=== PATIENT | male | born 1960 | race Caucasian/White ===

== ENCOUNTER 2019-07-23 08:43 | Inpatient (IN) | payer MEDICAID ==
[~2019-07-23] VITALS: Ht 180.3 cm; Wt 108.0 kg
[2019-07-23] VITALS (11 sets, daily range): BP systolic 149–248; BP diastolic 66–137
[~2019-07-23 08:43] MED LIST: NKM; NORCO 5-325 TA1 EAC1 ORAL; NORVASC10 MG ORAL
[2019-07-23] MEDS ORDERED: NKM (08:52)
[2019-07-23] MEDS ORDERED: cloNIDine 0.2mg Tab ORAL ONE (09:00)
--- NOTE | 2019-07-23 09:10 | Emergency Room Report ---
History of Present Illness General Chief Complaint: Hypertension Source: Patient Present Illness HPI Disclaimer: Please note that this report is being documented using m[employer] technology. This can lead to erroneous entry secondary to incorrect interpretation by the dictating instrument. HPI: 58-year-old male with a history of diabetes and hypertension noncompliant with his medications presents for evaluation of headaches and blurred vision. Symptoms have been intermittent over the past 3 days. He currently reports a 6/ 10 headache and intermittent blurred vision. Denies double vision, loss of vision. Sometimes will see bright flashes in his visual field. Patient is supposed to be taking insulin for his diabetes and an unknown antihypertensive for his blood pressures however he has been noncompliant for long time, possibly years. He denies any chest pain, difficulty breathing, abdominal pain , nausea, vomiting, recent fevers or URI symptoms. Denies numbness, tingling or weakness in the extremities. PMH: Hypertension, diabetes PSH: Hernia surgery Allergies: Denies Social Hx: Occasional alcohol use, denies tobacco use Allergies: Coded Allergies: No Known Allergies (Unverified , 01/17/16) Nursing Documentation-PMH Past Medical History: No History, Except For Hx Cardiac Problems: Yes - Stroke<5 weeks ago Hx Hypertension: Yes Hx Diabetes: Yes Hx Cancer: No Hx Gastrointestinal Problems: No Hx Neurological Problems: No Review of Systems All Other Systems: negative except mentioned in HPI Physical Exam Vital Signs Date Time Temp Pulse Resp B/P (MAP) Pulse Ox O2 Delivery O2 Flow Rate FiO2 07/23/19 08:48 107 18 222/136 (164) 96 Room Air General: Awake and alert, no acute distress HEENT: NC/AT. EOMI. PERRLA. Cardiovascular: Slightly tachycardic. S1 and S2 normal. No murmur appreciated Resp: Normal work of breathing. No cough, wheezing or crackles appreciated Abdomen: Abdomen is soft, nondistended. Nontender Skin: Intact. No abrasions, laceration or rash over the exposed skin MSK: Normal tone and bulk. Moving all extremities. No obvious deformity. Neuro: Awake and alert. Mentating appropriately. Medical Decision Making Diagnostic Impression: Primary Impression: Hypertensive urgency Additional Impression: Hyperglycemia ER Course This is a 58-year-old male history of diabetes and hypertension noncompliant with medications presenting for intermittent headaches and visual changes for the past 3 days. Currently has a 6/10 headache and no visual changes. He arrives very hypertensive with systolics in the 240s. He denies any chest pain , palpitations or other symptoms at this time. He cannot recall what medication he was prescribed many years ago for his hypertension but he is noncompliant. He no longer takes insulin. We will start a broad metabolic cardiac work-up on the patient. We will treat his elevated blood pressures and monitor for improvement. Laboratory Tests Test 07/23/19 09:10 White Blood Count 11.4 K/UL (4.8-10.8) H Red Blood Count 5.38 M/UL (4.70-6.10) Hemoglobin 16.1 G/DL (14.2-18.0) Hematocrit 45.2 % (42.0-52.0) Mean Corpuscular Volume 84 FL (80-99) Mean Corpuscular Hemoglobin 30.0 PG (27.0-31.0) Mean Corpuscular Hemoglobin Concent 35.6 G/DL (32.0-36.0) Red Cell Distribution Width 12.0 % (11.6-14.8) Platelet Count 360 K/UL (150-450) Mean Platelet Volume 8.0 FL (6.5-10.1) Neutrophils (%) (Auto) 59.2 % (45.0-75.0) Lymphocytes (%) (Auto) 33.1 % (20.0-45.0) Monocytes (%) (Auto) 5.7 % (1.0-10.0) Eosinophils (%) (Auto) 0.8 % (0.0-3.0) Basophils (%) (Auto) 1.2 % (0.0-2.0) Sodium Level 136 MMOL/L (136-145) Potassium Level 3.6 MMOL/L (3.5-5.1) Chloride Level 100 MMOL/L (98-107) Carbon Dioxide Level 28 MMOL/L (21-32) Anion Gap 8 mmol/L (5-15) Blood Urea Nitrogen 15 mg/dL (7-18) Creatinine 1.0 MG/DL (0.55-1.30) Estimate Glomerular Filtration Rate > 60 mL/min (>60) Glucose Level 345 MG/DL (74-106) H Calcium Level 9.2 MG/DL (8.5-10.1) Total Bilirubin 0.5 MG/DL (0.2-1.0) Aspartate Amino Transferase (AST) 12 U/L (15-37) L Alanine Aminotransferase (ALT) 17 U/L (12-78) Alkaline Phosphatase 120 U/L (46-116) H Troponin I 0.000 ng/mL (0.000-0.056) Total Protein 7.8 G/DL (6.4-8.2) Albumin 3.6 G/DL (3.4-5.0) Globulin 4.2 g/dL Albumin/Globulin Ratio 0.9 (1.0-2.7) L Acetone Level Negative (NEGATIVE) EKG Diagnostic Results EKG Time: 09:00 Rate: normal Rhythm: NSR ST Segments: no acute changes Other Impression Tachycardia. Sinus rhythm, left axis deviation, normal intervals. No ST segment changes. Q waves in the inferior leads. Possible left fascicular block Rhythm Strip Diag. Results Rhythm Strip Time: 09:00 EP Interpretation: yes Rate: 100s Rhythm: NSR, no PVC's, no ectopy Reevaluation Time: 12:39 Last Vital Signs Date Time Temp Pulse Resp B/P (MAP) Pulse Ox O2 Delivery O2 Flow Rate FiO2 07/23/19 08:48 107 18 222/136 (164) 96 Room Air Status: improved Reevaluation Impression Labs have returned within normal limits. The patient's headache is improving as his blood pressures are coming down. He received clonidine and hydralazine with good effect. We will not drop his blood pressures further. Troponin negative. EKG unremarkable. Blood sugar improving after subcutaneous insulin. The patient has no outpatient follow-up, does not know how to dose insulin, does not know what medications he is to take for blood pressures. Given his lack of follow-up will admit him to the hospital for further treatment of his elevated blood pressures and high glucose readings as well as teaching him how to properly take his medications. Stable for admission to telemetry. Disposition: ADMITTED INPATIENT Condition: Serious Carlos Villalpando MD Jul 23, 2019 09:10
--- NOTE | 2019-07-23 09:30 | NUR ---
ED Nurse Note: Patient tolerated clonidine and hydralazine well. Current BP is 210/109. Patient headache now a 2/10. Patient states he feels much better than when he arrived.
--- NOTE | 2019-07-23 09:44 | NUR ---
ED Nurse Note: Patient arrived to ED from home complaining of 5/10 headache. Patient has BP of 248/128. He states that he has had uncontrolled hypertension for a long time and does not currently take any medications. Patient also has diabetes, blood glucose check is 365. Patient on the monitoring and evaluation advisor, bed in lowest position. No acute distress. Blood, urine, and swabs sent to lab.
[2019-07-23] MEDS ORDERED: Insulin Human Regular 100units/ml 3ml SUBQ ONE (10:00)
[2019-07-23 10:22] LABS: ANION GAP 8 mmol/L (5-15); BLOOD UREA NITROGEN 15 mg/dL (7-18); CALCIUM 9.2 MG/DL (8.5-10.1); CARBON DIOXIDE 28 MMOL/L (21-32); CHLORIDE 100 MMOL/L (98-107); POTASSIUM 3.6 MMOL/L (3.5-5.1); SODIUM 136 MMOL/L (136-145)
[2019-07-23 10:27] LABS: ALANINE AMINOTRANSFERASE 17 U/L (12-78); ALBUMIN 3.6 G/DL (3.4-5.0); ALBUMIN/GLOBULIN RATIO 0.9 (1.0-2.7); ALKALINE PHOSPHATASE 120 U/L (46-116); ASPARTATE AMINO TRANSFERASE 12 U/L (15-37); BILIRUBIN,TOTAL 0.5 MG/DL (0.2-1.0)
[2019-07-23 10:33] LABS: BASOPHILS % (AUTO) 1.2 % (0.0-2.0); EOSINOPHILS % (AUTO) 0.8 % (0.0-3.0); HEMATOCRIT 45.2 % (42.0-52.0); HEMOGLOBIN 16.1 G/DL (14.2-18.0); LYMPHOCYTES % (AUTO) 33.1 % (20.0-45.0); MEAN CORPUSCULAR VOLUME 84 FL (80-99); MONOCYTES % (AUTO) 5.7 % (1.0-10.0); NEUTROPHILS % (AUTO) 59.2 % (45.0-75.0); PLATELET COUNT 360 K/UL (150-450); RED BLOOD COUNT 5.38 M/UL (4.70-6.10); WHITE BLOOD COUNT 11.4 K/UL (4.8-10.8)
--- NOTE | 2019-07-23 11:19 | NUR ---
ER Nurse Note: Pt calm, awake, RA, no signs of distress. Pt VSS, BP under 160/90, ERMD aware. Pt states 2/10 headache with slight blurry vision. Pt able to move all extremity, no signs of stroke. Blood sugar under control; will recheck after insulin given by previous RN. All orders completed per previous RN. All safety measures met; will continue to monitor.
--- NOTE | 2019-07-23 11:48 | NUR ---
ER Nurse Note: Blood sugar checked; 266, ERMD notifed. No further orders. Pt aware of admission. All safety measures met; will continue to montior.
--- NOTE | 2019-07-23 12:49 | NUR ---
ER Nurse Note: Pt stable, no signs of distress, RA, denies pain. BP 160/101; MD and charge nurse aware, no orders. All belongings accounted for. Safety measures met; will continue to montior.
--- NOTE | 2019-07-23 14:09 | NUR ---
ER Nurse Note: Report given to HUBER Lomeli for continutiy of care. Pt stable, no signs of distress. All belongings taken.
[2019-07-23] MEDS ORDERED: cloNIDine 0.2mg Tab ORAL PRN (16:00)
--- NOTE | 2019-07-23 16:18 | NUR ---
NURSE NOTES: Received pt from EDI PROGRAMMER ANALYST SHARONA at 1430. All admission assessments and instructions done. pt is A&O x4. pt is in RA, no SOB or acute respiratory distress noted. pt is in continues cardiac monitoring as protocol, Dr DE OLIVEIRA was called for admission orders and he called back now and all orders noted and carried out. Dr DE OLIVEIRA is aware about WBC 11.4 and BS 345 and BP 175/110 and other lab results and V/S. Pt has intact iv access RAC 20g SL. all needs attended, bed is locked and is in the lowest position, call light within easy reach. will continue to monitor.
[2019-07-23] MEDS: NovoLOG Insulin Flexpen SUBQ SCH ×2 (17:00→21:28)
--- NOTE | 2019-07-23 18:16 | NUR ---
NURSE NOTES: Dr LOUISE iws aware about consult, order noted and carried out, and Dr AUSTIN is aware about consult.
--- NOTE | 2019-07-23 19:17 | NUR ---
HAND-OFF: Report given to TOI NAVAS. Pt is awake and stable.
--- NOTE | 2019-07-23 19:20 | Cardiology Progress Note ---
Assessment/Plan Assessment/Plan [id number] Objective Last 24 Hour Vital Signs Date Time Temp Pulse Resp B/P (MAP) Pulse Ox O2 Delivery O2 Flow Rate FiO2 07/23/19 18:10 155/84 (107) 07/23/19 16:57 162/99 07/23/19 16:06 70 07/23/19 16:00 97.9 70 20 162/99 (120) 99 07/23/19 14:45 Room Air 07/23/19 14:30 97.3 73 18 175/110 (131) 97 07/23/19 14:15 98.3 80 16 170/80 99 Room Air 07/23/19 14:15 98.4 76 16 170/80 98 Room Air 07/23/19 12:49 98.3 78 16 160/100 99 Room Air 07/23/19 11:18 98.3 81 16 156/66 99 Room Air 07/23/19 09:30 95 210/109 07/23/19 09:26 229/137 07/23/19 09:26 229/137 07/23/19 09:26 96 222/136 07/23/19 09:00 99 229/137 07/23/19 08:52 110 18 Room Air 07/23/19 08:52 98.1 110 18 248/122 98 Room Air 07/23/19 08:48 107 18 222/136 (164) 96 Room Air Laboratory Tests Test 07/23/19 09:10 White Blood Count 11.4 K/UL (4.8-10.8) H Red Blood Count 5.38 M/UL (4.70-6.10) Hemoglobin 16.1 G/DL (14.2-18.0) Hematocrit 45.2 % (42.0-52.0) Mean Corpuscular Volume 84 FL (80-99) Mean Corpuscular Hemoglobin 30.0 PG (27.0-31.0) Mean Corpuscular Hemoglobin Concent 35.6 G/DL (32.0-36.0) Red Cell Distribution Width 12.0 % (11.6-14.8) Platelet Count 360 K/UL (150-450) Mean Platelet Volume 8.0 FL (6.5-10.1) Neutrophils (%) (Auto) 59.2 % (45.0-75.0) Lymphocytes (%) (Auto) 33.1 % (20.0-45.0) Monocytes (%) (Auto) 5.7 % (1.0-10.0) Eosinophils (%) (Auto) 0.8 % (0.0-3.0) Basophils (%) (Auto) 1.2 % (0.0-2.0) Sodium Level 136 MMOL/L (136-145) Potassium Level 3.6 MMOL/L (3.5-5.1) Chloride Level 100 MMOL/L (98-107) Carbon Dioxide Level 28 MMOL/L (21-32) Anion Gap 8 mmol/L (5-15) Blood Urea Nitrogen 15 mg/dL (7-18) Creatinine 1.0 MG/DL (0.55-1.30) Estimat Glomerular Filtration Rate > 60 mL/min (>60) Glucose Level 345 MG/DL (74-106) H Calcium Level 9.2 MG/DL (8.5-10.1) Total Bilirubin 0.5 MG/DL (0.2-1.0) Aspartate Amino Transf (AST/SGOT) 12 U/L (15-37) L Alanine Aminotransferase (ALT/SGPT) 17 U/L (12-78) Alkaline Phosphatase 120 U/L (46-116) H Troponin I 0.000 ng/mL (0.000-0.056) Total Protein 7.8 G/DL (6.4-8.2) Albumin 3.6 G/DL (3.4-5.0) Globulin 4.2 g/dL Albumin/Globulin Ratio 0.9 (1.0-2.7) L Acetone Level Negative (NEGATIVE) Microbiology Date/Time Source Procedure Growth Status 07/23/19 09:20 Rectum Received Gregory Deleon MD Jul 23, 2019 19:20
--- NOTE | 2019-07-23 20:10 | NUR ---
NURSE NOTES: Written report received from HUBER Young. Patient in bed resting, no complaints of pain or distress at this time. Will continue to monitor.
[2019-07-23] MEDS: Levemir Flexpen SUBQ SCH (21:24)
[2019-07-24] VITALS: BP 141/83
[2019-07-24 04:00] VITALS: BP 140/86
[2019-07-24] MEDS: NovoLOG Insulin Flexpen SUBQ SCH ×4 (06:23→21:38)
--- NOTE | 2019-07-24 07:35 | NUR ---
NURSE NOTES: Received report from Jesica/RN, Patient is awake and alert, eating breakfast on bed. On room air, with no acute distress/SOB noted. A/O x4. Able to make needs known, Denies pain at this time. IV on Right AC patent, no bleeding or infiltration noted. Bed in low position and locked, Call light within reach. Encouraged to use call light when needed. Bed alarm engaged, side-rails up x2. Will continue plan of care.
[2019-07-24 07:42] LABS: BASOPHILS % (AUTO) 1.1 % (0.0-2.0); EOSINOPHILS % (AUTO) 1.8 % (0.0-3.0); HEMATOCRIT 42.5 % (42.0-52.0); HEMOGLOBIN 14.9 G/DL (14.2-18.0); LYMPHOCYTES % (AUTO) 33.5 % (20.0-45.0); MEAN CORPUSCULAR VOLUME 86 FL (80-99); MONOCYTES % (AUTO) 7.1 % (1.0-10.0); NEUTROPHILS % (AUTO) 56.5 % (45.0-75.0); PLATELET COUNT 326 K/UL (150-450); RED BLOOD COUNT 4.94 M/UL (4.70-6.10); RED CELL DISTRIBUTION WIDTH 12.5 % (11.6-14.8); WHITE BLOOD COUNT 10.5 K/UL (4.8-10.8)
--- NOTE | 2019-07-24 07:48 | NUR ---
HAND-OFF: Report given to Ashley RN. Patient in bed resting. Stable at Hand off.
[2019-07-24 08:00] VITALS: BP 172/105
[2019-07-24 08:13] LABS: ALANINE AMINOTRANSFERASE 18 U/L (12-78); ALBUMIN 3.1 G/DL (3.4-5.0); ALBUMIN/GLOBULIN RATIO 0.8 (1.0-2.7); ALKALINE PHOSPHATASE 97 U/L (46-116); ANION GAP 6 mmol/L (5-15); ASPARTATE AMINO TRANSFERASE 13 U/L (15-37); BILIRUBIN,TOTAL 0.6 MG/DL (0.2-1.0); BLOOD UREA NITROGEN 13 mg/dL (7-18); CARBON DIOXIDE 29 MMOL/L (21-32); CHLORIDE 104 MMOL/L (98-107); CHOLESTEROL 221 MG/DL (< 200); CREATININE 0.9 MG/DL (0.55-1.30); HDL CHOLESTEROL 27 MG/DL (40-60); POTASSIUM 3.8 MMOL/L (3.5-5.1); SODIUM 138 MMOL/L (136-145)
[2019-07-24] MEDS: Enoxaparin 40mg Inj SUBQ SCH (08:54)
[2019-07-24 09:59] LABS: TRIGLYCERIDES 187 MG/DL (30-150)
--- NOTE | 2019-07-24 10:11 | History & Physical ---
History and Physical History & Physicial Patient seen and examined. Full Dictation completed. Lilia Flores MD Jul 24, 2019 10:11
--- NOTE | 2019-07-24 10:12 | General Progress Note ---
Assessment/Plan Assessment/Plan: Full Dictation in progerss 1- DM 2- Hypertensive Emergency 3- Acute hypertensive encephalopathy Plan: Statin added Riki-I added Subjective Allergies: Coded Allergies: No Known Allergies (Unverified , 01/17/16) Objective Last 24 Hour Vital Signs Date Time Temp Pulse Resp B/P (MAP) Pulse Ox O2 Delivery O2 Flow Rate FiO2 07/24/19 08:48 72 172/105 07/24/19 08:48 72 172/105 07/24/19 08:00 96.6 72 18 172/105 (127) 93 07/24/19 04:00 98.4 68 18 140/86 (104) 98 07/24/19 04:00 55 07/24/19 00:00 98.0 64 18 141/83 (102) 99 07/24/19 00:00 62 07/23/19 21:22 67 149/94 07/23/19 21:00 Room Air 07/23/19 20:00 68 07/23/19 20:00 98.1 64 16 149/94 (112) 97 07/23/19 18:10 155/84 (107) 07/23/19 16:57 162/99 07/23/19 16:06 70 07/23/19 16:00 97.9 70 20 162/99 (120) 99 07/23/19 14:45 Room Air 07/23/19 14:30 97.3 73 18 175/110 (131) 97 07/23/19 14:15 98.3 80 16 170/80 99 Room Air 07/23/19 14:15 98.4 76 16 170/80 98 Room Air 07/23/19 12:49 98.3 78 16 160/100 99 Room Air 07/23/19 11:18 98.3 81 16 156/66 99 Room Air Intake and Output 07/23/19 07/24/19 19:00 07:00 Intake Total 1240 ml 140 ml Balance 1240 ml 140 ml Intake Oral 240 ml 140 ml IV Total 1000 ml # Voids 3 # Bowel Movements 1 1 Laboratory Tests 07/24/19 06:05: White Blood Count 10.5, Red Blood Count 4.94, Hemoglobin 14.9, Hematocrit 42.5, Mean Corpuscular Volume 86, Mean Corpuscular Hemoglobin 30.2, Mean Corpuscular Hemoglobin Concent 35.1, Red Cell Distribution Width 12.5, Platelet Count 326, Mean Platelet Volume 8.3, Neutrophils (%) (Auto) 56.5, Lymphocytes (%) (Auto) 33.5, Monocytes (%) (Auto) 7.1, Eosinophils (%) (Auto) 1.8, Basophils (%) (Auto ) 1.1, Sodium Level 138, Potassium Level 3.8, Chloride Level 104, Carbon Dioxide Level 29, Anion Gap 6, Blood Urea Nitrogen 13, Creatinine 0.9, Estimat Glomerular Filtration Rate > 60, Glucose Level 189#H, Hemoglobin A1c 10.9H, Calcium Level 9.0, Total Bilirubin 0.6, Aspartate Amino Transf (AST/SGOT) 13L, Alanine Aminotransferase (ALT/SGPT) 18, Alkaline Phosphatase 97, Troponin I 0.007, Pro-B-Type Natriuretic Peptide 207H, Total Protein 6.9, Albumin 3.1L, Globulin 3.8, Albumin/Globulin Ratio 0.8L, Triglycerides Level 187H, Cholesterol Level 221H, LDL Cholesterol 148H, HDL Cholesterol 27L, Cholesterol/ HDL Ratio 8.2H, Thyroid Stimulating Hormone (TSH) 1.184 Height (Feet): 5 Height (Inches): 11.00 Weight (Pounds): 245 Lilia Flores MD Jul 24, 2019 10:12
[2019-07-24] MEDS ORDERED: Lisinopril 10mg tab ORAL SCH (10:15)
[2019-07-24] MEDS: metFORMIN 500mg tab ORAL SCH ×2 (11:57→17:22)
[2019-07-24 12:00] VITALS: BP 159/100
--- NOTE | 2019-07-24 12:36 | NUR ---
CARDIOLOGY: [facility] ROOM : [facility] [id number] Temporary 2-D ECHO REPORT Normal left ventricular chamber size, systolic function and wall motion. Left ventricular ejection fraction estimated to be 60%. No evidence of left ventricular hypertrophy . No evidence of pericardial effusion. All other cardiac chamber sizes are within normal limits. Focal aortic valve sclerosis with adequate cusp excursion. Thickened mitral valve leaflets with normal excursion. Mitral annulus and aortic root calcification. Pulmonic valve not well visualized. Normal tricuspid valve structure. IVC at normal size with physiologic collapse. A color flow and spectral Doppler study was performed and revealed: No aortic insufficiency. Mild mitral regurgitation. Mitral diastolic velocities suggest reduced left ventricular relaxation c/w mild LV diastolic dysfunction (Grade I ). Trace tricuspid regurgitation. Tricuspid systolic velocities suggests peak right ventricular systolic pressure of 9mmHg.n.
--- NOTE | 2019-07-24 14:45 | History and Physical Report ---
DATE OF ADMISSION: 07/23/2019 SOURCE OF INFORMATION: The patient and EMR. HISTORY OF PRESENT ILLNESS: The patient is a pleasant 58-year-old male with history of diabetes and hypertension, who presented with diffuse weakness all over, mild chest pain, and shortness of breath. The patient denies having any diarrhea or constipation. No fever, no chills. Initial evaluation in the emergency room shows the blood pressure of 220 with pulse rate of 100, otherwise afebrile. REVIEW OF SYSTEMS: All 14 elements of review of systems reviewed, pertinent positive and negative as above. ALLERGIES: NKDA. CURRENT HOSPITAL MEDICATIONS: Including amlodipine, clonidine, and sliding scale medication. PAST MEDICAL HISTORY: Hypertension, diabetes. PAST SURGICAL HISTORY: Small bowel obstruction history. SOCIAL HISTORY: The patient lives with . Denies history of illicit drug abuse, smoking, or alcohol abuse. FAMILY HISTORY: Noncontributory. PHYSICAL EXAMINATION: VITAL SIGNS: Blood pressure 220, diastolic blood pressure 130, pulse rate 100, respiratory rate 18, temperature 98.2, pulse oximetry 98% on room air. HEAD AND NECK: Atraumatic and normocephalic. CHEST: Clear to auscultation. HEART: S1, S2. Regular rate and rhythm. ABDOMEN: Soft. No organomegaly. MUSCULOSKELETAL: No gross focal motor deficit. A scar of prior surgery noted. NEUROLOGY: Awake, alert, and oriented x3. LABORATORY DATA: Dated July 23, WBC 11.4, hemoglobin 16.1, platelets 360. Sodium 136, potassium 3.6, glucose 340. AST 12. TSH 1.1. LDL of 148. ASSESSMENT AND PLAN: 1. Hypertensive emergency. 2. Acute hypertensive encephalopathy. 3. Diabetes type 2, uncontrolled. 4. Hyperlipidemia. 5. GI and DVT prophylaxis. PLAN OF CARE: I agree with the telemetry admission. We will start the patient on amlodipine and I will titrate the medications accordingly. COMMENT: The time of this dictation does not reflect the actual time of encounter. Lilia Flores M.D. DR: ASHLEY JOB#: [id number] CC:
[2019-07-24 16:00] VITALS: BP 150/67
--- NOTE | 2019-07-24 18:42 | Cardiology Progress Note ---
Assessment/Plan Problem List: (1) Hypertensive urgency Status: stable, progressing Status Narrative Mr To's BP is improving, but still significantly elevated. He has hyperlipidemia, w LDL 148, and is diabetic ? diabetic nephropathy Assessment/Plan Uptitrate lisinopril. Continue metoprolol Add statin for HLD Subjective ROS Limited/Unobtainable: No Subjective Cardiology for Dr. Deleon Pt comfortable. H/a and vision changes have resolved Objective Last 24 Hour Vital Signs Date Time Temp Pulse Resp B/P (MAP) Pulse Ox O2 Delivery O2 Flow Rate FiO2 07/24/19 16:00 73 07/24/19 16:00 98.1 70 20 150/67 (94) 93 07/24/19 12:00 96.6 71 18 159/100 (119) 96 07/24/19 12:00 64 07/24/19 10:33 172/105 07/24/19 09:00 Room Air 07/24/19 08:48 72 172/105 07/24/19 08:48 72 172/105 07/24/19 08:00 96.6 72 18 172/105 (127) 93 07/24/19 08:00 73 07/24/19 04:00 98.4 68 18 140/86 (104) 98 07/24/19 04:00 55 07/24/19 00:00 98.0 64 18 141/83 (102) 99 07/24/19 00:00 62 07/23/19 21:22 67 149/94 07/23/19 21:00 Room Air 07/23/19 20:00 68 07/23/19 20:00 98.1 64 16 149/94 (112) 97 General Appearance: WD/WN, no apparent distress, alert EENT: PERRL/EOMI Neck: non-tender, no JVD Rhythm: NSR Cardiovascular: normal rate, regular rhythm, no gallop/murmur Respiratory/Chest: lungs clear Abdomen: non tender, soft, no mass Extremities: no swelling Pulses: normal: DP (L), DP (R) Neurologic: no motor/sensory deficits, alert, oriented x 3 Intake and Output 07/23/19 07/24/19 19:00 07:00 Intake Total 1240 ml 140 ml Balance 1240 ml 140 ml Intake Oral 240 ml 140 ml IV Total 1000 ml # Voids 3 # Bowel Movements 1 1 Laboratory Tests Test 07/24/19 06:05 White Blood Count 10.5 K/UL (4.8-10.8) Red Blood Count 4.94 M/UL (4.70-6.10) Hemoglobin 14.9 G/DL (14.2-18.0) Hematocrit 42.5 % (42.0-52.0) Mean Corpuscular Volume 86 FL (80-99) Mean Corpuscular Hemoglobin 30.2 PG (27.0-31.0) Mean Corpuscular Hemoglobin Concent 35.1 G/DL (32.0-36.0) Red Cell Distribution Width 12.5 % (11.6-14.8) Platelet Count 326 K/UL (150-450) Mean Platelet Volume 8.3 FL (6.5-10.1) Neutrophils (%) (Auto) 56.5 % (45.0-75.0) Lymphocytes (%) (Auto) 33.5 % (20.0-45.0) Monocytes (%) (Auto) 7.1 % (1.0-10.0) Eosinophils (%) (Auto) 1.8 % (0.0-3.0) Basophils (%) (Auto) 1.1 % (0.0-2.0) Sodium Level 138 MMOL/L (136-145) Potassium Level 3.8 MMOL/L (3.5-5.1) Chloride Level 104 MMOL/L (98-107) Carbon Dioxide Level 29 MMOL/L (21-32) Anion Gap 6 mmol/L (5-15) Blood Urea Nitrogen 13 mg/dL (7-18) Creatinine 0.9 MG/DL (0.55-1.30) Estimat Glomerular Filtration Rate > 60 mL/min (>60) Glucose Level 189 MG/DL (74-106) #H Hemoglobin A1c 10.9 % (4.3-6.0) H Calcium Level 9.0 MG/DL (8.5-10.1) Total Bilirubin 0.6 MG/DL (0.2-1.0) Aspartate Amino Transf (AST/SGOT) 13 U/L (15-37) L Alanine Aminotransferase (ALT/SGPT) 18 U/L (12-78) Alkaline Phosphatase 97 U/L (46-116) Troponin I 0.007 ng/mL (0.000-0.056) Pro-B-Type Natriuretic Peptide 207 pg/mL (0-125) H Total Protein 6.9 G/DL (6.4-8.2) Albumin 3.1 G/DL (3.4-5.0) L Globulin 3.8 g/dL Albumin/Globulin Ratio 0.8 (1.0-2.7) L Triglycerides Level 187 MG/DL (30-150) H Cholesterol Level 221 MG/DL (< 200) H LDL Cholesterol 148 mg/dL (<100) H HDL Cholesterol 27 MG/DL (40-60) L Cholesterol/HDL Ratio 8.2 (3.3-4.4) H Thyroid Stimulating Hormone (TSH) 1.184 uiU/mL (0.358-3.740) Microbiology Date/Time Source Procedure Growth Status 07/23/19 09:20 Rectum Received Sarah Snell MD Jul 24, 2019 18:42
--- NOTE | 2019-07-24 19:30 | NUR ---
HAND-OFF: Report given to Maria Fernanda/RN, Patient is in stable condition. Endorsed plan of care.
[2019-07-24 20:00] VITALS: BP 171/103
--- NOTE | 2019-07-24 20:00 | NUR ---
NURSE NOTES: RECEIVED PATIENT LYING IN BED, AWAKE, ALERT/ORIENTED X4, IRISH SPEAKING, ABLE TO MAKE NEEDS KNOWN IN [place], DENIES PAIN. NO SIGNS AND SYMPTOMS OF ACUTE CARDIO RESPIRATORY DISTRESS/SHORTNESS OF BREATH, DENIES CHEST PAIN, NO PERIPHERAL EDEMA NOTED, CONTINUE ON [facility] ADVOCATE. ABDOMEN SOFT/NON DISTENDED, BOWEL SOUNDS AUDIBLE IN ALL QUADRANTS, NO N/V. SIDE RAILS UP X2 FOR MOBILITY, BED IN LOWEST POSITION FOR SAFETY, ENCOURAGED PATIENT TO UTILIZE CALL LIGHT FOR ASSISTANCE, VERBALIZED UNDERSTANDING. NAD.
[2019-07-24] MEDS: Atorvastatin 20mg tab ORAL SCH (21:31)
[2019-07-24] MEDS: Levemir Flexpen SUBQ SCH (21:40)
--- NOTE | 2019-07-24 22:22 | NUR ---
NURSE NOTES: BLOOD PRESSURE REASSESSED 143/98, REMAIN ASYMPTOMATIC, WILL CONTINUE TO MONITOR.
[2019-07-25] VITALS (8 sets, daily range): BP systolic 127–187; BP diastolic 81–110
[2019-07-25] MEDS: cloNIDine 0.2mg Tab ORAL PRN ×2 (00:29→10:06)
--- NOTE | 2019-07-25 01:00 | NUR ---
NURSE NOTES: REASSESSED BLOOD PRESSURE AFTER CLONIDINE WITH RESULT 150/95, ASYMPTOMATIC, DENIES HEADACHE/BLURRED VISION/DIZZINESS, WILL CONTINUE TO MONITOR.
[2019-07-25] MEDS: metFORMIN 500mg tab ORAL SCH ×3 (06:24→16:38)
[2019-07-25] MEDS: NovoLOG Insulin Flexpen SUBQ SCH ×4 (06:30→20:54)
--- NOTE | 2019-07-25 06:36 | NUR ---
NURSE NOTES: RESTED WELL, NO SIGNIFICANT CHANGE OF CONDITION NOTED THROUGHOUT THE NIGHT. SAFETY MAINTAINED. NAD.
--- NOTE | 2019-07-25 07:09 | NUR ---
HAND-OFF: Report given to HUBER SONI. Addendum: 07/25/19 at 0720 by KYM BRITTON LVN CHARTED IN ERROR, REPORT GIVEN TO HUBER TOLENTINO
--- NOTE | 2019-07-25 07:20 | NUR ---
NURSE NOTES: Received report from Maria Fernanda/RN, Patient is awake, Lying semi-de santiago's, resting comfortably. On room air, with no acute distress/SOB noted. A/O x4. Able to make needs known, Denies pain at this time. IV on Right AC patent, no bleeding or infiltration noted. Bed in low position and locked, Call light within reach. Encouraged to use call light when needed. Bed alarm engaged, side-rails up x2. Will continue plan of care.
[2019-07-25] MEDS: Enoxaparin 40mg Inj SUBQ SCH (08:28)
--- NOTE | 2019-07-25 08:30 | General Progress Note ---
Assessment/Plan Status: stable, progressing Assessment/Plan: S: I am ok O; Denies sob, cp PHYSICAL EXAMINATION:HEAD AND NECK: Atraumatic and normocephalic. CHEST: Clear to auscultation.HEART: S1, S2. Regular rate and rhythm. ABDOMEN: Soft. No organomegaly.MUSCULOSKELETAL: No gross focal motor deficit. A scar of prior surgery noted.NEUROLOGY: Awake, alert, and oriented x3. LABORATORY DATA: Dated July 25 reveiwed ASSESSMENT AND PLAN: 1. Hypertensive emergency. 2. Acute hypertensive encephalopathy. 3. Diabetes type 2, uncontrolled. 4. Hyperlipidemia. 5. GI and DVT prophylaxis. PLAN OF CARE: Cardiology to optimise BP meds Move from Inj to PO medication for DM Subjective Allergies: Coded Allergies: No Known Allergies (Unverified , 01/17/16) Objective Last 24 Hour Vital Signs Date Time Temp Pulse Resp B/P (MAP) Pulse Ox O2 Delivery O2 Flow Rate FiO2 07/25/19 08:00 97.0 71 20 181/106 (131) 100 07/25/19 04:00 97.6 62 16 129/81 (97) 96 07/25/19 04:00 62 07/25/19 00:29 173/96 07/25/19 00:00 97.7 60 18 177/105 (129) 96 07/25/19 00:00 60 07/24/19 21:34 72 180/101 07/24/19 21:00 Room Air 07/24/19 20:00 73 07/24/19 20:00 97.3 64 17 171/103 (125) 98 07/24/19 16:00 73 07/24/19 16:00 98.1 70 20 150/67 (94) 93 07/24/19 12:00 96.6 71 18 159/100 (119) 96 07/24/19 12:00 64 07/24/19 10:33 172/105 07/24/19 09:00 Room Air 07/24/19 08:48 72 172/105 07/24/19 08:48 72 172/105 Intake and Output 07/24/19 07/25/19 19:00 07:00 Intake Total 140 ml 720 ml Output Total 800 ml Balance -660 ml 720 ml Intake Oral 140 ml 720 ml Output Urine Total 800 ml # Voids 3 3 Height (Feet): 5 Height (Inches): 11.00 Weight (Pounds): 245 Lilia Flores MD Jul 25, 2019 08:30
[2019-07-25] MEDS ORDERED: Glimepiride 4mg tab ORAL SCH (09:00)
[2019-07-25] MEDS ORDERED: Lisinopril 20mg tab ORAL SCH (09:00)
--- NOTE | 2019-07-25 10:07 | NUR ---
NURSE NOTES: Pt BP is 173/105, PRN Clonidine 0.2mg given.
--- NOTE | 2019-07-25 12:00 | NUR ---
NURSE NOTES: Pt BP is still high 187/110. PRN medication is not due. Will recheck BP again
--- NOTE | 2019-07-25 12:57 | NUR ---
NURSE NOTES: Patient BP went down to 127/84.
--- NOTE | 2019-07-25 15:20 | Cardiology Progress Note ---
Assessment/Plan Problem List: (1) Hypertensive urgency (2) Hyperglycemia Status: stable, progressing Status Narrative Pt remains w/ SBP 170-180s and DBP to 110 mm Hg at times. His vision changes and headache, which may have been due to very elevated BPs, have resolved. Assessment/Plan Uptitrate lisinopril to 20 mg bid. add HCTZ. Continue metoprolol ( unable to titrate further , as HRs 60 bpm) Attempt to minimize clonidine ( being given prn) to avoid rebound HTN continue atorvastatin for HLD Subjective ROS Limited/Unobtainable: No Subjective Cardiology for Dr. Deleon Mr. Ariza has no c/o chest pain, dyspnea, or vision changes. Events noted. Objective Last 24 Hour Vital Signs Date Time Temp Pulse Resp B/P (MAP) Pulse Ox O2 Delivery O2 Flow Rate FiO2 07/25/19 12:56 127/84 (98) 07/25/19 12:00 96.8 64 20 187/110 (135) 100 07/25/19 12:00 60 07/25/19 10:06 173/105 07/25/19 10:00 173/105 (127) 07/25/19 09:00 Room Air 07/25/19 08:23 71 181/106 07/25/19 08:22 181/106 07/25/19 08:00 69 07/25/19 08:00 97.0 71 20 181/106 (131) 100 07/25/19 04:00 97.6 62 16 129/81 (97) 96 07/25/19 04:00 62 07/25/19 00:29 173/96 07/25/19 00:00 97.7 60 18 177/105 (129) 96 07/25/19 00:00 60 07/24/19 21:34 72 180/101 07/24/19 21:00 Room Air 07/24/19 20:00 73 07/24/19 20:00 97.3 64 17 171/103 (125) 98 07/24/19 16:00 73 07/24/19 16:00 98.1 70 20 150/67 (94) 93 General Appearance: WD/WN, no apparent distress, alert EENT: PERRL/EOMI Neck: no JVD Rhythm: NSR Cardiovascular: normal rate, regular rhythm, no gallop/murmur Respiratory/Chest: lungs clear Abdomen: normal bowel sounds, non tender, soft Extremities: no swelling Intake and Output 07/24/19 07/25/19 19:00 07:00 Intake Total 140 ml 720 ml Output Total 800 ml Balance -660 ml 720 ml Intake Oral 140 ml 720 ml Output Urine Total 800 ml # Voids 3 3 Microbiology Date/Time Source Procedure Growth Status 07/23/19 09:20 Nasal Nares MRSA Culture - Final NO METHICILLIN RESISTANT STAPH AUREUS... Complete 07/23/19 09:20 Rectum - Final NO CARBAPENEM-RESISTANT ENTEROBACTERI... Complete 07/23/19 09:20 Rectum VRE Culture - Final NO VANCOMYCIN RESISTANT ENTEROCOCCUS ... Complete Sarah Snell MD Jul 25, 2019 15:20
--- NOTE | 2019-07-25 20:00 | NUR ---
NURSE NOTES: RECEIVED PATIENT LYING IN BED, AWAKE, ALERT/ORIENTED X4, VERBALLY RESPONSIVE, DENIES PAIN. NO SIGNS AND SYMPTOMS OF ACUTE CARDIO RESPIRATORY DISTRESS/SHORTNESS OF BREATH, DENIES CHEST PAIN, NO EDEMA NOTED. VITALS MONITORED, B/P 148/96, ASSESSED FOR SIGNS AND SYMPTOMS OF HYPERTENSION, NONE NOTED. CONTINUE ON HOME HEALTH ADMINISTRATOR. NO REPORT OF GI DISCOMFORT, NO NAUSEA/VOMITING, LAST BOWEL MOVEMENT 07/25/19, DENIES DIARRHEA. SIDE RAILS UP X2 FOR MOBILITY, BED IN LOWEST POSITION FOR SAFETY, CALL LIGHT WITHIN REACH, ENCOURAGED PATIENT TO UTILIZE CALL LIGHT FOR ASSISTANCE, VERBALIZED UNDERSTANDING. CONTINUE WITH CURRENT PLAN OF CARE. NAD.
--- NOTE | 2019-07-25 20:22 | NUR ---
HAND-OFF: Report given to Maria Fernanda. Patient is in stable condition. Endorsed plan of care.
[2019-07-25] MEDS: Atorvastatin 20mg tab ORAL SCH (20:49)
[2019-07-25] MEDS: Lisinopril 20mg tab ORAL SCH (20:50)
[2019-07-26] VITALS (8 sets, daily range): BP systolic 134–174; BP diastolic 84–106
--- NOTE | 2019-07-26 00:10 | NUR ---
NURSE NOTES: VITALS ASSESSED, AFEBRILE.
--- NOTE | 2019-07-26 00:18 | NUR ---
NURSE NOTES: DR. AUSTIN ASSESSED PATIENT, INCREASED FREQUENCY OF METFORMIN TO TWICE DAILY BEFORE MEAL, PATIENT MADE AWARE.
--- NOTE | 2019-07-26 04:00 | Geriatric Medicine Prog Note ---
DATE: 07/25/2019 "NOTE: POOR AUDIO QUALITY" SUBJECTIVE: The patient has good diabetic control. OBJECTIVE: VITAL SIGNS: Blood pressure 114/91, pulse , respirations 18, and temperature . . ASSESSMENT: Status post good diabetic control. The patient is going to get on 07/25/2019. Placed on 1000 mg p.o. b.i.d., 100 mg p.o. daily. Emanuel Chan M.D. DR: SANTOS JOB#: [id number] CC:
[2019-07-26] MEDS: cloNIDine 0.2mg Tab ORAL PRN ×2 (05:22→12:48)
[2019-07-26] MEDS: Glimepiride 4mg tab ORAL SCH (05:50)
[2019-07-26] MEDS: metFORMIN 500mg tab ORAL SCH ×2 (05:50→16:45)
--- NOTE | 2019-07-26 06:06 | NUR ---
NURSE NOTES: RESTED WELL, NO SIGNIFICANT CHANGE OF CONDITION NOTED THROUGHOUT THE NIGHT. SAFETY MAINTAINED. NAD.
[2019-07-26] MEDS: NovoLOG Insulin Flexpen SUBQ SCH ×4 (06:21→20:54)
[2019-07-26 06:59] LABS: ANION GAP 8 mmol/L (5-15); BLOOD UREA NITROGEN 13 mg/dL (7-18); CALCIUM 9.2 MG/DL (8.5-10.1); CARBON DIOXIDE 26 MMOL/L (21-32); CHLORIDE 106 MMOL/L (98-107); CREATININE 0.9 MG/DL (0.55-1.30); SODIUM 140 MMOL/L (136-145)
--- NOTE | 2019-07-26 07:09 | General Progress Note ---
Assessment/Plan Problem List: (1) Hyperglycemia ICD Codes: R73.9 - Hyperglycemia, unspecified SNOMED: 83501562 (2) Hypertensive urgency ICD Codes: I16.0 - Hypertensive urgency SNOMED: 971129828 (3) Hypertension ICD Codes: I10 - Essential (primary) hypertension SNOMED: 81828726 Status: stable, progressing Assessment/Plan: continue Amaryl 4 mg daily continue Metformin 1000 mg bid continue Januvia 100 mg daily continue NISS most likely he won't need insulin after DC Subjective Allergies: Coded Allergies: No Known Allergies (Unverified , 01/17/16) All Systems: reviewed and negative except above Subjective events noted seen by Dustin over the weekend glucose values are stable Item Value Date Time Bedside Blood Glucose 141 mg/dl H 07/26/19 0621 Bedside Blood Glucose 163 mg/dl H 07/25/19 2054 Bedside Blood Glucose 155 mg/dl H 07/25/19 1638 Bedside Blood Glucose 131 mg/dl H 07/25/19 1140 Bedside Blood Glucose 143 mg/dl H 07/25/19 0630 Objective Last 24 Hour Vital Signs Date Time Temp Pulse Resp B/P (MAP) Pulse Ox O2 Delivery O2 Flow Rate FiO2 07/26/19 05:45 134/89 (104) 07/26/19 05:22 172/101 07/26/19 05:17 172/101 (124) 07/26/19 04:00 54 07/26/19 04:00 97.0 54 18 165/94 (117) 96 07/26/19 00:00 56 07/26/19 00:00 97.1 56 18 152/95 (114) 100 07/25/19 21:00 Room Air 07/25/19 20:50 148/91 07/25/19 20:50 61 148/91 07/25/19 20:00 66 07/25/19 20:00 97.7 66 18 148/96 (113) 99 07/25/19 16:00 62 07/25/19 16:00 97.0 63 20 133/90 (104) 100 07/25/19 12:56 127/84 (98) 07/25/19 12:00 96.8 64 20 187/110 (135) 100 07/25/19 12:00 60 07/25/19 10:06 173/105 07/25/19 10:00 173/105 (127) 07/25/19 09:00 Room Air 07/25/19 08:23 71 181/106 07/25/19 08:22 181/106 07/25/19 08:00 69 07/25/19 08:00 97.0 71 20 181/106 (131) 100 Intake and Output 07/25/19 07/26/19 19:00 07:00 Intake Total 860 ml 720 ml Balance 860 ml 720 ml Intake Oral 860 ml 720 ml # Voids 2 # Bowel Movements 1 1 Laboratory Tests 07/26/19 06:05: Sodium Level 140, Potassium Level 4.0, Chloride Level 106, Carbon Dioxide Level 26, Anion Gap 8, Blood Urea Nitrogen 13, Creatinine 0.9, Estimat Glomerular Filtration Rate > 60, Glucose Level 165H, Calcium Level 9.2 Height (Feet): 5 Height (Inches): 11.00 Weight (Pounds): 245 General Appearance: no apparent distress Neck: normal alignment Cardiovascular: normal rate Abdomen: normal bowel sounds Pelvis: normal external exam Objective Current Medications Medications (Trade) Dose Ordered Sig/Krysta Route PRN Reason Start Time Stop Time Status Last Admin Dose Admin Acetaminophen (Tylenol) 650 mg Q4H PRN ORAL Mild Pain/Temp > 100.5 07/23/19 16:00 08/22/19 15:59 07/24/19 06:25 Atorvastatin Calcium (Lipitor) 20 mg BEDTIME ORAL 07/24/19 21:00 08/23/19 20:59 07/25/19 20:49 Clonidine HCl (Catapres tab) 0.2 mg Q4H PRN ORAL For High Blood Pressure 07/23/19 20:00 08/22/19 15:59 07/26/19 05:22 Dextrose (Dextrose 50%) 25 ml Q30M PRN IV Hypoglycemia 07/23/19 16:00 08/22/19 15:59 Dextrose (Dextrose 50%) 50 ml Q30M PRN IV Hypoglycemia 07/23/19 16:00 08/22/19 15:59 Enoxaparin Sodium (Lovenox) 40 mg DAILY SUBQ 07/24/19 09:00 08/23/19 08:59 07/25/19 08:28 Glimepiride (AmaryL) 4 mg ACBREAKFAST ORAL 07/26/19 06:30 08/25/19 06:29 07/26/19 05:50 Hydrochlorothiazide (Hydrodiuril) 12.5 mg DAILY ORAL 07/26/19 09:00 08/25/19 08:59 Insulin Aspart (NovoLOG) BEFORE MEALS AND HS SUBQ 07/23/19 16:30 08/22/19 16:29 07/26/19 06:21 Lisinopril (Prinivil) 20 mg EVERY 12 HOURS ORAL 07/25/19 21:00 08/23/19 10:14 07/25/19 20:50 Metformin HCl (Glucophage) 1,000 mg BIAC ORAL 07/26/19 06:30 08/25/19 06:29 07/26/19 05:50 Metoprolol Tartrate (Lopressor) 25 mg Q12HR ORAL 07/23/19 21:00 08/22/19 20:59 07/25/19 20:50 Pantoprazole (Protonix) 40 mg DAILY ORAL 07/24/19 09:00 08/23/19 08:59 07/25/19 08:23 Sitagliptin Phosphate (Januvia) 100 mg ACBREAKFAST ORAL 07/25/19 06:30 08/24/19 06:29 07/26/19 05:50 Andreas Hall MD Jul 26, 2019 07:09
--- NOTE | 2019-07-26 07:43 | NUR ---
HAND-OFF: Report given to HUBER HORNE.
--- NOTE | 2019-07-26 08:00 | NUR ---
Received awake, alert, in bed, eating breakfast.denies any significant complaints. anxious to go home. Will continue to monitor..
[2019-07-26] MEDS: hydroCHLOROthiazide 12.5mg TAB ORAL SCH (09:14)
[2019-07-26] MEDS: Lisinopril 20mg tab ORAL SCH ×2 (09:15→20:56)
[2019-07-26] MEDS: Enoxaparin 40mg Inj SUBQ SCH (09:17)
--- NOTE | 2019-07-26 10:31 | General Progress Note ---
Assessment/Plan Status: stable, progressing Assessment/Plan: S: I am ok O; Denies sob, cp PHYSICAL EXAMINATION:HEAD AND NECK: Atraumatic and normocephalic. CHEST: Clear to auscultation.HEART: S1, S2. Regular rate and rhythm. ABDOMEN: Soft. No organomegaly.MUSCULOSKELETAL: No gross focal motor deficit. A scar of prior surgery noted.NEUROLOGY: Awake, alert, and oriented x3. LABORATORY DATA: Dated July 26 reveiwed ASSESSMENT AND PLAN: 1. Hypertensive emergency. 2. Acute hypertensive encephalopathy. 3. Diabetes type 2, uncontrolled. 4. Hyperlipidemia. 5. GI and DVT prophylaxis. PLAN OF CARE: Cardiology to optimise BP meds Move from Inj to PO medication for DM Followup as outpatient , once clear by cardiology Subjective Allergies: Coded Allergies: No Known Allergies (Unverified , 01/17/16) Objective Last 24 Hour Vital Signs Date Time Temp Pulse Resp B/P (MAP) Pulse Ox O2 Delivery O2 Flow Rate FiO2 07/26/19 10:10 Room Air 07/26/19 09:16 69 158/69 07/26/19 09:15 158/69 07/26/19 08:37 65 07/26/19 08:35 98.5 68 18 158/92 (114) 96 07/26/19 05:45 134/89 (104) 07/26/19 05:22 172/101 07/26/19 05:17 172/101 (124) 07/26/19 04:00 54 07/26/19 04:00 97.0 54 18 165/94 (117) 96 07/26/19 00:00 56 07/26/19 00:00 97.1 56 18 152/95 (114) 100 07/25/19 21:00 Room Air 07/25/19 20:50 148/91 07/25/19 20:50 61 148/91 07/25/19 20:00 66 07/25/19 20:00 97.7 66 18 148/96 (113) 99 07/25/19 16:00 62 07/25/19 16:00 97.0 63 20 133/90 (104) 100 07/25/19 12:56 127/84 (98) 07/25/19 12:00 96.8 64 20 187/110 (135) 100 07/25/19 12:00 60 Intake and Output 07/25/19 07/26/19 19:00 07:00 Intake Total 860 ml 720 ml Balance 860 ml 720 ml Intake Oral 860 ml 720 ml # Voids 2 # Bowel Movements 1 1 Laboratory Tests 07/26/19 06:05: Sodium Level 140, Potassium Level 4.0, Chloride Level 106, Carbon Dioxide Level 26, Anion Gap 8, Blood Urea Nitrogen 13, Creatinine 0.9, Estimat Glomerular Filtration Rate > 60, Glucose Level 165H, Calcium Level 9.2 Height (Feet): 5 Height (Inches): 11.00 Weight (Pounds): 245 Lilia Flores MD Jul 26, 2019 10:31
--- NOTE | 2019-07-26 14:29 | NUR ---
CASE MANAGEMENT:REVIEW 58 YR OLD MALE WALKED IN TO ER CC: HYPERTENSION SI: UNCONTROLLED HYPERTENSION. HYPERGLYCEMIA 98.1 110 18 222/136 96% ON RA WBC+11.4 GLUCOSE+345 IS: 1L NS BOLUS IV HYDRALAZINE X1 CLONIDINE PO X1 LEVEMIR SQ : TO TELEMETRY 07/25/19 SI: UNCONTROLLED HYPERTENSION. HYPERGLYCEMIA 96.8 64 20 187/110 100% ON RA GLUCOSE+250 IS:LISINOPRIL PO Q12 JANUVIA PO QAM LIPITOR PO QHS PROTONIX PO QD LOVENOX SQ QD LOPRESSOR PO Q12 : TELEMETRY STATUS 07/26/19 SI: ACUTE HYPERTENSIVE ENCEPHALOPATHY UNCONTROLLED DM 97.5 63 18 176/106 97% ON RA IS:HCTZ PO QD LISINOPRIL PO Q12 JANUVIA PO QAM LIPITOR PO QHS PROTONIX PO QD LOVENOX SQ QD LOPRESSOR PO Q12 : TELEMETRY STATUS
--- NOTE | 2019-07-26 19:15 | NUR ---
NURSE NOTES: Pt received from HUBER Brown alert and oriented x4 with no acute s/s of distress noted. IV site asymptomatic and patent. Bed in lowest position, call light and belongings within reach.
--- NOTE | 2019-07-26 20:33 | Cardiology Progress Note ---
Assessment/Plan Assessment/Plan 1. Hypertensive emergency. 2. Acute hypertensive encephalopathy. 3. Diabetes type 2, uncontrolled. 4. Hyperlipidemia. add norvasc keep on acei on low fuchs bb on diuretics all trop neg home tmorrow if bp spikes are nto sig Subjective Cardiovascular: Denies: chest pain, lightheadedness, palpitations Respiratory: Denies: shortness of breath Gastrointestinal/Abdominal: Denies: abdominal pain Genitourinary: Denies: burning Objective Last 24 Hour Vital Signs Date Time Temp Pulse Resp B/P (MAP) Pulse Ox O2 Delivery O2 Flow Rate FiO2 07/26/19 20:00 97.7 56 18 147/87 (107) 97 07/26/19 16:27 55 07/26/19 16:26 97.0 62 18 140/84 (102) 96 07/26/19 12:48 176/106 07/26/19 12:19 58 07/26/19 12:01 97.5 63 18 174/106 (128) 97 07/26/19 10:10 Room Air 07/26/19 09:16 69 158/69 07/26/19 09:15 158/69 07/26/19 08:37 65 07/26/19 08:35 98.5 68 18 158/92 (114) 96 07/26/19 05:45 134/89 (104) 07/26/19 05:22 172/101 07/26/19 05:17 172/101 (124) 07/26/19 04:00 54 07/26/19 04:00 97.0 54 18 165/94 (117) 96 07/26/19 00:00 56 07/26/19 00:00 97.1 56 18 152/95 (114) 100 07/25/19 21:00 Room Air 07/25/19 20:50 148/91 07/25/19 20:50 61 148/91 General Appearance: no apparent distress, alert Neck: supple Cardiovascular: normal rate Respiratory/Chest: lungs clear Abdomen: normal bowel sounds, non tender, soft Extremities: no swelling Intake and Output 07/25/19 07/26/19 18:59 06:59 Intake Total 860 ml 720 ml Balance 860 ml 720 ml Intake Oral 860 ml 720 ml # Voids 2 # Bowel Movements 1 1 Laboratory Tests Test 07/26/19 06:05 Sodium Level 140 MMOL/L (136-145) Potassium Level 4.0 MMOL/L (3.5-5.1) Chloride Level 106 MMOL/L (98-107) Carbon Dioxide Level 26 MMOL/L (21-32) Anion Gap 8 mmol/L (5-15) Blood Urea Nitrogen 13 mg/dL (7-18) Creatinine 0.9 MG/DL (0.55-1.30) Estimat Glomerular Filtration Rate > 60 mL/min (>60) Glucose Level 165 MG/DL (74-106) H Calcium Level 9.2 MG/DL (8.5-10.1) Gregory Deleon MD Jul 26, 2019 20:33
[2019-07-26] MEDS: Atorvastatin 20mg tab ORAL SCH (20:56)
[2019-07-27] VITALS (9 sets, daily range): BP systolic 123–210; BP diastolic 60–112
[2019-07-27] MEDS: NovoLOG Insulin Flexpen SUBQ SCH ×4 (05:36→21:19)
[2019-07-27] MEDS: metFORMIN 500mg tab ORAL SCH ×2 (05:36→17:08)
[2019-07-27] MEDS: Glimepiride 4mg tab ORAL SCH (05:36)
--- NOTE | 2019-07-27 06:46 | General Progress Note ---
Assessment/Plan Problem List: (1) Hyperglycemia ICD Codes: R73.9 - Hyperglycemia, unspecified SNOMED: 17246610 (2) Hypertensive urgency ICD Codes: I16.0 - Hypertensive urgency SNOMED: 040728079 (3) Hypertension ICD Codes: I10 - Essential (primary) hypertension SNOMED: 25354751 Status: stable, progressing Assessment/Plan: continue Amaryl 4 mg daily continue Metformin 1000 mg bid continue Januvia 100 mg daily continue NISS no need for insulin after discharge Subjective Allergies: Coded Allergies: No Known Allergies (Unverified , 01/17/16) All Systems: reviewed and negative except above Subjective events noted glucose values are stable Item Value Date Time Bedside Blood Glucose 134 mg/dl H 07/27/19 0621 Bedside Blood Glucose 140 mg/dl H 07/26/19 2100 Bedside Blood Glucose 129 mg/dl H 07/26/19 1647 Bedside Blood Glucose 101 mg/dl 07/26/19 1200 Bedside Blood Glucose 141 mg/dl H 07/26/19 0621 Objective Last 24 Hour Vital Signs Date Time Temp Pulse Resp B/P (MAP) Pulse Ox O2 Delivery O2 Flow Rate FiO2 07/27/19 04:00 98.0 69 18 155/99 (117) 98 07/27/19 04:00 66 07/27/19 00:00 97.2 64 18 124/60 (81) 97 07/27/19 00:00 63 07/26/19 21:00 Room Air 07/26/19 20:56 145/88 07/26/19 20:55 56 145/88 07/26/19 20:55 56 145/88 07/26/19 20:00 56 07/26/19 20:00 97.7 56 18 147/87 (107) 97 07/26/19 16:27 55 07/26/19 16:26 97.0 62 18 140/84 (102) 96 07/26/19 12:48 176/106 07/26/19 12:19 58 07/26/19 12:01 97.5 63 18 174/106 (128) 97 07/26/19 10:10 Room Air 07/26/19 09:16 69 158/69 07/26/19 09:15 158/69 07/26/19 08:37 65 07/26/19 08:35 98.5 68 18 158/92 (114) 96 Intake and Output 07/26/19 07/27/19 19:00 07:00 Intake Total 720 ml 250 ml Balance 720 ml 250 ml Intake Oral 720 ml 250 ml # Voids 4 3 # Bowel Movements 1 1 Height (Feet): 5 Height (Inches): 11.00 Weight (Pounds): 245 General Appearance: no apparent distress Neck: normal alignment Cardiovascular: normal rate Respiratory/Chest: lungs clear Abdomen: normal bowel sounds Objective Current Medications Medications (Trade) Dose Ordered Sig/Krysta Route PRN Reason Start Time Stop Time Status Last Admin Dose Admin Acetaminophen (Tylenol) 650 mg Q4H PRN ORAL Mild Pain/Temp > 100.5 07/23/19 16:00 08/22/19 15:59 07/24/19 06:25 Amlodipine Besylate (Norvasc) 5 mg DAILY ORAL 07/26/19 20:30 08/25/19 20:29 07/26/19 20:55 Atorvastatin Calcium (Lipitor) 20 mg BEDTIME ORAL 07/24/19 21:00 08/23/19 20:59 07/26/19 20:56 Clonidine HCl (Catapres tab) 0.2 mg Q4H PRN ORAL For High Blood Pressure 07/23/19 20:00 08/22/19 15:59 07/26/19 12:48 Dextrose (Dextrose 50%) 25 ml Q30M PRN IV Hypoglycemia 07/23/19 16:00 08/22/19 15:59 Dextrose (Dextrose 50%) 50 ml Q30M PRN IV Hypoglycemia 07/23/19 16:00 08/22/19 15:59 Enoxaparin Sodium (Lovenox) 40 mg DAILY SUBQ 07/24/19 09:00 08/23/19 08:59 07/26/19 09:17 Glimepiride (AmaryL) 4 mg ACBREAKFAST ORAL 07/26/19 06:30 08/25/19 06:29 07/27/19 05:36 Hydrochlorothiazide (Hydrodiuril) 12.5 mg DAILY ORAL 07/26/19 09:00 08/25/19 08:59 07/26/19 09:14 Insulin Aspart (NovoLOG) BEFORE MEALS AND HS SUBQ 07/23/19 16:30 08/22/19 16:29 07/27/19 05:36 Lisinopril (PriniviL) 20 mg EVERY 12 HOURS ORAL 07/25/19 21:00 08/23/19 10:14 07/26/19 20:56 Metformin HCl (Glucophage) 1,000 mg BIAC ORAL 07/26/19 06:30 08/25/19 06:29 07/27/19 05:36 Metoprolol Tartrate (Lopressor) 25 mg Q12HR ORAL 07/23/19 21:00 08/22/19 20:59 07/26/19 09:16 Pantoprazole (Protonix) 40 mg DAILY ORAL 07/24/19 09:00 08/23/19 08:59 07/26/19 09:16 Sitagliptin Phosphate (Januvia) 100 mg ACBREAKFAST ORAL 07/25/19 06:30 08/24/19 06:29 07/27/19 05:36 Andreas Hall MD Jul 27, 2019 06:46
--- NOTE | 2019-07-27 07:10 | NUR ---
HAND-OFF: Report given to HUBER Espinosa. Plan of care endorsed.
--- NOTE | 2019-07-27 07:12 | NUR ---
NURSE NOTES: Received report from [facility]. Pt in bed awake and oriented x3. No c/o pain. No acute distress noted. IV site in LAC 20G SL patent and asymptomatic. Sinus rhythm on monitor. Bed ion lowest position and locked. On room air. Call light within easy reach. Will continue to plan of care.
[2019-07-27] MEDS: Lisinopril 20mg tab ORAL SCH ×2 (08:33→21:13)
[2019-07-27] MEDS: hydroCHLOROthiazide 12.5mg TAB ORAL SCH (08:33)
[2019-07-27] MEDS: Enoxaparin 40mg Inj SUBQ SCH (08:36)
--- NOTE | 2019-07-27 10:39 | NUR ---
CASE MANAGEMENT:REVIEW 07/27/19 SI: UNCONTROLLED HYPERTENSION. HYPERGLYCEMIA 97.5 83 20 170/110 98% ON RA is: norvasc po qd hctz po qd amaryl po qam metformin po bid ac lisinopril po q12 protonix po qd LOVENOX SQ QD LOPRESSOR PO Q12 : TELEMETRY STATUS DCP: FROM HOME
[2019-07-27] MEDS: cloNIDine 0.2mg Tab ORAL PRN (11:44)
--- NOTE | 2019-07-27 12:11 | Cardiology Progress Note ---
Assessment/Plan Assessment/Plan 1. Hypertensive emergency. 2. Acute hypertensive encephalopathy. 3. Diabetes type 2, uncontrolled. 4. Hyperlipidemia. increase norvasc 10 mg daily keep on acei 20 mg bid dc metoprolol stat on labatolol 100 mg bid may need to increase on diuretics increase dose to 25 mg o of hctz daily all trop neg Subjective Cardiovascular: Denies: chest pain, lightheadedness, palpitations Respiratory: Denies: shortness of breath Gastrointestinal/Abdominal: Denies: abdominal pain Genitourinary: Denies: burning Objective Last 24 Hour Vital Signs Date Time Temp Pulse Resp B/P (MAP) Pulse Ox O2 Delivery O2 Flow Rate FiO2 07/27/19 11:44 210/110 07/27/19 11:43 80 210/110 (143) 07/27/19 11:28 97.5 84 20 160/112 (128) 98 07/27/19 09:00 Room Air 07/27/19 08:33 83 170/110 07/27/19 08:33 170/110 07/27/19 08:33 83 170/110 07/27/19 08:00 97.5 83 20 170/110 (130) 98 07/27/19 08:00 78 07/27/19 04:00 98.0 69 18 155/99 (117) 98 07/27/19 04:00 66 07/27/19 00:00 97.2 64 18 124/60 (81) 97 07/27/19 00:00 63 07/26/19 21:00 Room Air 07/26/19 20:56 145/88 07/26/19 20:55 56 145/88 07/26/19 20:55 56 145/88 07/26/19 20:00 56 07/26/19 20:00 97.7 56 18 147/87 (107) 97 07/26/19 16:27 55 07/26/19 16:26 97.0 62 18 140/84 (102) 96 07/26/19 12:48 176/106 07/26/19 12:19 58 General Appearance: no apparent distress, alert Neck: supple Cardiovascular: normal rate Abdomen: normal bowel sounds, non tender, soft Extremities: no swelling Intake and Output 07/26/19 07/27/19 19:00 07:00 Intake Total 720 ml 250 ml Balance 720 ml 250 ml Intake Oral 720 ml 250 ml # Voids 4 3 # Bowel Movements 1 1 Gregory Deleon MD Jul 27, 2019 12:11
--- NOTE | 2019-07-27 17:59 | General Progress Note ---
Assessment/Plan Status: stable, progressing Assessment/Plan: S: I am ok O; Denies sob, cp PHYSICAL EXAMINATION:HEAD AND NECK: Atraumatic and normocephalic. CHEST: Clear to auscultation.HEART: S1, S2. Regular rate and rhythm. ABDOMEN: Soft. No organomegaly.MUSCULOSKELETAL: No gross focal motor deficit. A scar of prior surgery noted.NEUROLOGY: Awake, alert, and oriented x3. LABORATORY DATA: Dated July 26 reveiwed ASSESSMENT AND PLAN: 1. Hypertensive emergency. 2. Acute hypertensive encephalopathy. 3. Diabetes type 2, uncontrolled. 4. Hyperlipidemia. 5. GI and DVT prophylaxis. PLAN OF CARE: Cardiology to optimise BP meds Move from Inj to PO medication for DM Followup as outpatient , once clear by cardiology Subjective Allergies: Coded Allergies: No Known Allergies (Unverified , 01/17/16) Objective Last 24 Hour Vital Signs Date Time Temp Pulse Resp B/P (MAP) Pulse Ox O2 Delivery O2 Flow Rate FiO2 07/27/19 16:00 91 07/27/19 16:00 98.0 87 20 150/90 (110) 98 07/27/19 13:40 88 20 123/70 (87) 97 07/27/19 12:13 88 210/110 07/27/19 12:13 88 210/110 07/27/19 12:12 88 210/110 (143) 210/110 (143) 07/27/19 12:00 79 07/27/19 11:44 210/110 07/27/19 11:43 80 210/110 (143) 07/27/19 11:28 97.5 84 20 160/112 (128) 98 07/27/19 09:00 Room Air 07/27/19 08:33 83 170/110 07/27/19 08:33 170/110 07/27/19 08:33 83 170/110 07/27/19 08:00 97.5 83 20 170/110 (130) 98 07/27/19 08:00 78 07/27/19 04:00 98.0 69 18 155/99 (117) 98 07/27/19 04:00 66 07/27/19 00:00 97.2 64 18 124/60 (81) 97 07/27/19 00:00 63 07/26/19 21:00 Room Air 07/26/19 20:56 145/88 07/26/19 20:55 56 145/88 07/26/19 20:55 56 145/88 07/26/19 20:00 56 07/26/19 20:00 97.7 56 18 147/87 (107) 97 Intake and Output 07/26/19 07/27/19 19:00 07:00 Intake Total 720 ml 250 ml Balance 720 ml 250 ml Intake Oral 720 ml 250 ml # Voids 4 3 # Bowel Movements 1 1 Height (Feet): 5 Height (Inches): 11.00 Weight (Pounds): 245 Lilia Flores MD Jul 27, 2019 17:59
--- NOTE | 2019-07-27 19:17 | NUR ---
HAND-OFF: Report given to Marcelino ANN. Pt remains stable.
--- NOTE | 2019-07-27 20:00 | NUR ---
NURSE NOTES: RECEIVED PATIENT LYING IN BED,AWAKE, ALERT/ORIENTED X4, VERBALLY RESPONSIVE, DENIES PAIN. 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 ABDOMEN SOFT/NON DISTENDED/BOWEL SOUNDS AUDIBLE IN ALL QUADRANTS, DENIES NAUSEA/VOMITING. ENCOURAGED PATIENT TO UTILIZE CALL LIGHT FOR ASSISTANCE, VERBALIZED UNDERSTANDING. BED IN LOWEST POSITION FOR SAFETY. CONTINUE WITH CURRENT PLAN OF CARE. NAD.
[2019-07-27] MEDS: Atorvastatin 20mg tab ORAL SCH (21:13)
[2019-07-28] VITALS: BP 136/71
--- NOTE | 2019-07-28 01:21 | NUR ---
NURSE NOTES: RESTING WELL ON ROUNDS. NAD.
[2019-07-28 04:00] VITALS: BP 118/65
[2019-07-28] MEDS: metFORMIN 500mg tab ORAL SCH (06:16)
[2019-07-28] MEDS: Glimepiride 4mg tab ORAL SCH (06:16)
[2019-07-28] MEDS: NovoLOG Insulin Flexpen SUBQ SCH ×2 (06:18→11:56)
--- NOTE | 2019-07-28 06:19 | NUR ---
NURSE NOTES: RESTED WELL, NO SIGNIFICANT CHANGE OF CONDITION NOTED THROUGHOUT THE NIGHT. SAFETY MAINTAINED. NAD.
--- NOTE | 2019-07-28 07:30 | NUR ---
HAND-OFF: Report given to HUBER RENTERIA.
--- NOTE | 2019-07-28 07:47 | NUR ---
NURSE NOTES: Received patient from Lore [facility]. Patient is awake in bed. Denies pain or discomfort at this time. Fall precautions in place. aware to notify staff when he needs to get up or use the bathroom. will follow.
[2019-07-28 08:00] VITALS: BP 134/82
[2019-07-28] MEDS: hydroCHLOROthiazide 12.5mg TAB ORAL SCH (08:26)
[2019-07-28] MEDS: Lisinopril 20mg tab ORAL SCH (08:26)
[2019-07-28] MEDS: Enoxaparin 40mg Inj SUBQ SCH (08:29)
[2019-07-28 12:00] VITALS: BP 130/86
[2019-07-28] MEDS ORDERED: LIPITOR20 MG ORAL (12:44)
[2019-07-28] MEDS ORDERED: NORMODYNE100 MG ORAL (12:44)
[2019-07-28] MEDS ORDERED: GLUCOPHAGE500 MG ORAL (12:44)
[2019-07-28] MEDS ORDERED: JANUVIA100 MG ORAL (12:44)
[2019-07-28] MEDS ORDERED: DIURIL25 MG ORAL (12:44)
[2019-07-28] MEDS ORDERED: NORVASC10 MG ORAL (12:44)
[2019-07-28] MEDS ORDERED: PRINIVIL20 MG ORAL (12:44)
[2019-07-28] MEDS ORDERED: AMARYL4 MG ORAL (12:44)
--- NOTE | 2019-07-28 12:45 | General Progress Note ---
Assessment/Plan Status: stable, progressing Assessment/Plan: S: I am ok O; Denies sob, cp PHYSICAL EXAMINATION:HEAD AND NECK: Atraumatic and normocephalic. CHEST: Clear to auscultation.HEART: S1, S2. Regular rate and rhythm. ABDOMEN: Soft. No organomegaly.MUSCULOSKELETAL: No gross focal motor deficit. A scar of prior surgery noted.NEUROLOGY: Awake, alert, and oriented x3. LABORATORY DATA: Dated July 26 reveiwed ASSESSMENT AND PLAN: 1. Hypertensive emergency. 2. Acute hypertensive encephalopathy. 3. Diabetes type 2, uncontrolled. 4. Hyperlipidemia. 5. GI and DVT prophylaxis. PLAN OF CARE: Cardiology to optimise BP meds Move from Inj to PO medication for DM Followup as outpatient , advised for fu in 3-5 days and agreed Subjective Allergies: Coded Allergies: No Known Allergies (Unverified , 01/17/16) Objective Last 24 Hour Vital Signs Date Time Temp Pulse Resp B/P (MAP) Pulse Ox O2 Delivery O2 Flow Rate FiO2 07/28/19 12:00 97.6 107 20 130/86 (101) 100 07/28/19 12:00 106 07/28/19 09:00 Room Air 07/28/19 08:26 103 134/82 07/28/19 08:26 103 134/82 07/28/19 08:26 134/82 07/28/19 08:00 124 07/28/19 08:00 96.6 103 18 134/82 (99) 94 07/28/19 04:00 103 07/28/19 04:00 99.8 127 20 118/65 (82) 94 07/28/19 00:00 103 07/28/19 00:00 97.1 103 18 136/71 (92) 96 07/27/19 21:13 62 151/92 07/27/19 21:13 151/92 07/27/19 21:00 Room Air 07/27/19 20:00 91 07/27/19 20:00 97.6 91 18 151/92 (111) 99 07/27/19 16:00 91 07/27/19 16:00 98.0 87 20 150/90 (110) 98 07/27/19 13:40 88 20 123/70 (87) 97 Intake and Output 07/27/19 07/28/19 19:00 07:00 Intake Total 1800 ml 500 ml Balance 1800 ml 500 ml Intake Oral 1800 ml 500 ml # Voids 5 # Bowel Movements 1 1 Height (Feet): 5 Height (Inches): 11.00 Weight (Pounds): 238 Lilia Flores MD Jul 28, 2019 12:45
--- NOTE | 2019-07-28 12:45 | NUR ---
NURSE NOTES: Received discharge order from Dr. Isbell. Patient to be discharge home. Initiated. Patient said /son will pick him up. Unable to contact next of kin listed in face sheet.
[2019-07-28] MEDS ORDERED: NS 275ml ONE (14:19)
[2019-07-28] MEDS ORDERED: Tubing IV Secondary IV ONE (14:19)
--- NOTE | 2019-07-28 14:22 | NUR ---
NURSE NOTES: Patient discharge to home as pr Dr. Isbell's order, accompanied by son. Discharge instructions discussed with patient, verbalizes understanding. Medication prescriptions given to patient. citizenship teacher, IV and ID band removed from patient. all belongings taken. Patient ambulated with steady gait. VSS. Denies pain or discomfort.
--- NOTE | 2019-07-30 11:15 | Discharge Summary ---
Discharge Summary Discharge Summary _ Discharge summary DATE OF ADMISSION: 07/23/2019 DATE OF DISCHARGE: 07/28/2019 DISCHARGED BY: Dr. Flores REASON FOR ADMISSION: 58 years old male with past medical history of hypertension and diabetes, noncompliant with his medications, presented to emergency room for evaluation due to headaches and blurry vision. Patient reported intermittent symptoms over the last 3 days. He reported headache , 6 out of 10 , with intermittent blurry vision. He denied double vision or loss of vision. Patient was not taking his medications. Upon evaluation patient was tachycardic , blood pressure was severely elevated 222/136 , pulse oximetry was stable on room air. Laboratory work-up revealed mild leukocytosis WBC 11.4, hemoglobin 16.1 , hematocrit 45.2. Stable electrolytes and renal parameters. Glucose 345. Troponin negative. EKG revealed sinus rhythm no acute ischemic changes. Patient received antihypertensives: clonidine and hydralazine with good effect. Headache improved as blood pressure was coming down. Patient received subcutaneous insulin with improvement in blood sugar . Patient subsequently admitted to telemetry floor for further management. CONSULTANTS: celery cutter Dr. Deleon speech professor Dr. Hall [place] [employer]SE: Patient admitted to telemetry floor. Real Estate Agent and speech professor followed. Echocardiogram revealed preserved ejection fraction of 60% with no evidence of wall motion abnormality. No evidence of left ventricular hypertrophy. No evidence of pericardial effusion. Right ventricular systolic pressure of 9. Antihypertensive regimen further optimized as per celery cutter to bring blood pressure under control. Blood pressure was managed with multiple antihypertensive medications, including calcium channel avani, beta-avani, hydrochlorothiazide and VIKTORIA inhibitor. Prior to discharge blood pressure 130/86. Pulse oximetry stable on room air. Headache resolved. Acute hypertensive encephalopathy was due to hypertensive emergency and resolved as blood pressure was controlled. All troponin were negative . EKG revealed no acute ischemic changes . Patient will rule out for acute myocardial infarction. Antiplatelet therapy with aspirin continued. Lipid panel revealed elevated triglycerides 187 , elevated total cholesterol 221 and LDL 147 , low HDL 27 noted. TSH within normal limits. Patient started on statin. Patient was educated on low-fat low-cholesterol cardiac diabetic diet and compliance. Botanical Technical Officer followed. Hemoglobin A1c 10.9 , clearly not at goal. Anti-glycemic regimen was further uptitrated as per speech professor. Patient was on three different oral anti-glycemics, including Amaryl , metformin and Januvia. Sliding scale of insulin was continued as needed. Blood sugar improved while in the hospital. Per speech professor no need for insulin after discharge. DVT and GI prophylaxis provided. Patient was counseled on compliance with medication regimen and diet upon discharge. Patient clinically stabilized and was ready for discharge home. FINAL DIAGNOSES: Hypertensive emergency Acute hypertensive encephalopathy Diabetes mellitus type 2 uncontrolled Hyperlipidemia DISCHARGE MEDICATIONS: See Medication Reconciliation list. DISCHARGE INSTRUCTIONS: Patient was discharged home. Follow-up with a primary care provider in 1 week. I have been assigned to dictate discharge summary for this account. I was not involved in the patient's management. Shelbie Salazar NP Jul 30, 2019 11:15
== END 2019-07-28 14:20 | disposition home or self-care (01) | DRG 199 ==
LOC: EMR 09:25 → EDBEDREQSVC 13:38 → EDBEDREQ 13:38 → 2E 14:03
DX: I16.1 Hypertensive emergency (principal); I67.4 Hypertensive encephalopathy; E11.65 Type 2 diabetes mellitus with hyperglycemia; E78.5 Hyperlipidemia, unspecified; Z91.14 Patient's other noncompliance with medication regimen
CPT/HCPCS: 36415; 80048; 80053; 80061; 82009; 82962; 83036; 83880; 84443; 84484; 85025; 87081; 93005; 93306; 96361; 96374; 99285; J1815; J7030; S5561

== ENCOUNTER 2019-07-30 02:31 | Emergency (ER) | payer MEDICAID ==
[~2019-07-30] VITALS: Ht 180.3 cm; Wt 108.9 kg
[~2019-07-30 02:31] MED LIST changes: +AMARYL4 MG ORAL; +DIURIL25 MG ORAL; +GLUCOPHAGE500 MG ORAL; +JANUVIA100 MG ORAL; +LIPITOR20 MG ORAL; +NORMODYNE100 MG ORAL; +PRINIVIL20 MG ORAL
--- NOTE | 2019-07-30 02:52 | Emergency Room Report ---
History of Present Illness General Chief Complaint: Male Urogenital Problems Source: Patient Present Illness HPI This a 58-year-old male with history of diabetes high blood pressure. He presents with chief complaint of urinary retention. Said he is unable to pee but very little for 15 hours. Very little come out. He has pressure and pain to the penis and pelvic area. Never had this problem before. No nausea no vomiting. No fever chills but no diarrhea. Very uncomfortable. Pain is pressure-like. Worse with urination. Allergies: Coded Allergies: No Known Allergies (Unverified , 01/17/16) Patient History Past Medical History: see triage record, old chart reviewed, DM, HTN Past Surgical History: other Pertinent Family History: none Social History: Denies: smoking Immunizations: other Reviewed Nursing Documentation: PMH: Agreed; PSxH: Agreed Nursing Documentation-PMH Hx Cardiac Problems: Yes Hx Hypertension: Yes Hx Diabetes: Yes Hx Cancer: No Hx Gastrointestinal Problems: No Hx Neurological Problems: No Review of Systems Eye: Denies: eye pain, blurred vision ENT: Denies: ear pain, nose congestion, throat swelling Respiratory: Denies: cough, shortness of breath Cardiovascular: Denies: chest pain, palpitations Gastrointestinal: Denies: abdominal pain, diarrhea, nausea, vomiting Genitourinary: Reports: retention Musculoskeletal: Denies: back pain, joint pain Skin: Denies: rash Neurological: Denies: headache, numbness Endocrine: Denies: increased thirst, increased urine Hematologic/Lymphatic: Denies: easy bruising All Other Systems: negative except mentioned in HPI Physical Exam Vital Signs Date Time Temp Pulse Resp B/P (MAP) Pulse Ox O2 Delivery O2 Flow Rate FiO2 07/30/19 02:35 97.5 123 19 205/117 (146) 96 Room Air Vitals with high blood pressure and tachycardia Sp02 EP Interpretation: reviewed, normal General Appearance: well appearing, no apparent distress, alert Head: normocephalic, atraumatic Eyes: bilateral eye PERRL, bilateral eye EOMI ENT: hearing grossly normal, normal pharynx Neck: full range of motion, supple, no meningismus Respiratory: chest non-tender, lungs clear, normal breath sounds Cardiovascular #1: regular rate, rhythm, no murmur Gastrointestinal: normal bowel sounds, no mass, no organomegaly, no bruit, non- distended, tenderness - Distended bladder Musculoskeletal: back normal, normal range of motion, gait/station normal Psychiatric: mood/affect normal Medical Decision Making Diagnostic Impression: Primary Impression: Acute urinary retention Additional Impression: Hypertension Qualified Codes: I10 - Essential (primary) hypertension ER Course Patient with urinary retention. My bedside ultrasound showed a very distended bladder. Also has a very large prostate. He will need further work-up to rule out prostate cancer. Better after Dowd. Blood pressure improved. Last Vital Signs Date Time Temp Pulse Resp B/P (MAP) Pulse Ox O2 Delivery O2 Flow Rate FiO2 07/30/19 02:35 97.5 123 19 205/117 (146) 96 Room Air Status: improved Disposition: HOME, SELF-CARE Condition: Stable Scripts Tamsulosin HCl (Flomax) 0.4 Mg Cap.er.24h 0.4 MG ORAL DAILY, #30 CAP Prov: Bubba Patel MD 07/30/19 Referrals: NOT CHOSEN IPA/,REFERRING (PCP) Additional Instructions: Follow-up in 3 to 4 days for recheck and Dowd removal. Follow-up with your doctor. You will need checkup on your prostate. Return if symptoms worsen. Bubba Patel MD Jul 30, 2019 02:52
[2019-07-30 03:04] VITALS: BP 156/94
[2019-07-30 03:08] LABS: APPEARANCE,URINE CLEAR; BILIRUBIN, URINE NEGATIVE (NEGATIVE); GLUCOSE, URINE (UA) 2+ (NEGATIVE); KETONES,URINE 1+ (NEGATIVE); LEUKOCYTE ESTERASE ,URINE NEGATIVE (NEGATIVE); NITRITE,URINE NEGATIVE (NEGATIVE); PH,URINE 5 (4.5-8.0); PROTEIN,URINE 2+ (NEGATIVE); UROBILINOGEN,URINE NORMAL MG/DL (0.0-1.0)
[2019-07-30 03:11] LABS: COLOR,URINE YELLOW
[2019-07-30] MEDS ORDERED: FLOMAX0.4 MG ORAL (03:35)
[2019-07-30 03:40] VITALS: BP 152/96
== END 2019-07-30 03:40 | disposition home or self-care (01) ==
LOC: EMR 02:46
DX: R33.9 Retention of urine, unspecified (principal); I10 Essential (primary) hypertension; E11.9 Type 2 diabetes mellitus without complications; N40.1 Benign prostatic hyperplasia with lower urinary tract symptoms
CPT/HCPCS: 51702; 81003; Z7502; 99283